=== PATIENT | female | born 1980 | race Caucasian/White ===

== ENCOUNTER 2018-09-23 16:49 | Emergency (ER) | payer BC, MEDICAID ==
[~2018-09-23] VITALS: Ht 170.2 cm; Wt 68.0 kg
--- NOTE | 2018-09-23 17:05 | NUR ---
BIB SELF W C/O ANXIETY X 2 DAYS. REQUESTING MED REFILL FOR CLONAZEPAM 2 MG. TO ER BED 2, HOOKED TO MONITOR, AWAITING MD REYES
--- NOTE | 2018-09-23 17:15 | NUR ---
DR LARA AT BEDSIDE
--- NOTE | 2018-09-23 17:33 | NUR ---
Patient discharged to home in stable condition. Written and verbal after care instructions given. Patient verbalizes understanding of instruction.
[2018-09-23 17:34] VITALS: BP 120/78
== END 2018-09-23 17:35 | disposition home or self-care (01) ==
LOC: ER 16:50
DX: F41.9 Anxiety disorder, unspecified (principal); Z88.0 Allergy status to penicillin
CPT/HCPCS: 99284; A4606

== ENCOUNTER 2018-10-11 19:04 | Emergency (ER) | payer MEDICAID ==
[~2018-10-11] VITALS: Ht 170.2 cm; Wt 63.5 kg
[2018-10-11 19:12] VITALS: BP 124/84
[2018-10-11] MEDS ORDERED: clonazePAM 1 MG TABLET PO ONE (19:30)
[2018-10-11] MEDS ORDERED: clonazePAM 1 MG TABLET ONE (19:36)
== END 2018-10-11 19:42 | disposition home or self-care (01) ==
LOC: ER 19:11
DX: F41.9 Anxiety disorder, unspecified (principal); F90.9 Attention-deficit hyperactivity disorder, unspecified type; G47.9 Sleep disorder, unspecified; F32.9 Major depressive disorder, single episode, unspecified; G47.00 Insomnia, unspecified; Z76.0 Encounter for issue of repeat prescription; Z88.0 Allergy status to penicillin

== ENCOUNTER → 2025-03-11 | Emergency (ER) | payer MEDICAID, OTHER ==
[~2025-03-11] VITALS: Ht 170.2 cm; Wt 83.9 kg
[~2025-03-11] MED LIST: ACETAMINOPHEN 325 MG TABLET ONE; ALBU18HF2 INH; ALBUTEROL FS 2.5 MG/3 ML VIAL.NEB ONE; AZITHROMYCIN 250 MG TABLET ONE; CT SWABBABLE VALVE TRANS SET 1 EA INFUS.SET MC ONE; DOXY100C2 PO; DOXYCYCLINE HYCLATE (100 MG) 100 MG TABLET ONE; GUAI5SYR PO; GUAIFENESIN/D-METHORPHAN HB 5 ML UDC ONE; IOHEXOL-350 100 ML VIAL IV ONE; IV NS 0.9% 250 ML IV ONE; LEVO750T46 PO; LEVOFLOXACIN (250MG) 250 MG TABLET ONE; LEVOFLOXACIN 750 MG /D5W 150ML PIGGYBACK IV ONE
[2025-03-11] MEDS: ACETAMINOPHEN 325 MG TABLET PO ONE (20:39)
[2025-03-11] MEDS: AZITHROMYCIN 250 MG TABLET PO ONE (22:05)
[2025-03-11] MEDS: DOXYCYCLINE HYCLATE (100 MG) 100 MG TABLET PO ONE (22:05)
[2025-03-11] MEDS: LEVOFLOXACIN (250MG) 250 MG TABLET PO ONE (22:33)
[2025-03-11] MEDS: GUAIFENESIN/D-METHORPHAN HB 5 ML UDC PO ONE (22:33)
[2025-03-11 22:48] LABS: PLATELET COUNT (AUTO) 372 K/uL (150-450); RED BLOOD CELL COUNT(AUTO) 4.34 MIL/uL (4.0-5.2); RED CELL DISTRIBUTION WIDTH 13.4 % (11.5-15.0); WHITE BLOOD COUNT (AUTO) 10.7 K/uL (4.3-11.0)
[2025-03-11 22:54] LABS: CALCIUM, SERUM 8.5 mg/dL (8.5-10.1); CREATININE 1.0 mg/dL (0.6-1.3); SODIUM SERUM 137.0 mmol/L (136-145); UREA NITROGEN, BLOOD 8.0 mg/dL (7-18)
[2025-03-11] MEDS: ALBUTEROL FS 2.5 MG/3 ML VIAL.NEB NEB ONE (22:59)
[2025-03-11 23:06] VITALS: O2SAT 92
[2025-03-11 23:06] LABS: NT-PRO BNP 16.0 pg/mL (0-125)
[2025-03-11 23:16] VITALS: O2SAT 96
[2025-03-12 02:09] VITALS: BP 110/52; TEMP 98; O2SAT 94
== END | disposition left against medical advice (07) ==
LOC: ER 20:01
DX: J18.9 Pneumonia, unspecified organism (principal); R06.02 Shortness of breath; R09.02 Hypoxemia; R05.9 Cough, unspecified; Z60.2 Problems related to living alone; Z53.29 Procedure and treatment not carried out because of patient's decision for other reasons; Z88.0 Allergy status to penicillin; Z20.822 Contact with and (suspected) exposure to COVID-19
CPT/HCPCS: 99285; 71275; 71045; 87426; 87804 ×2; 84145; 85025; 80048; 85378; 36415; 87420; 83880; 94640; J7050; Q9967